=== PATIENT | female | born 1980 | race Caucasian/White ===

== ENCOUNTER 2024-07-25 10:38 | Emergency (ER) | payer OTHER, SELFPAY ==
[2024-07-25 11:07] VITALS: BP 114/81; PULSE 111; RESP 16; O2SAT 99; BMI 21.4
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
[2024-07-25 13:24] LABS: HCG Qualitative Urine. Negative (Negative)
[2024-07-25 14:31] VITALS: BP 113/78; PULSE 95; RESP 18; O2SAT 100
== END 2024-07-25 13:40 | disposition home or self-care (01) ==
PROVIDERS: Emergency Provider Family Medicine
DX: T76.21XA Adult sexual abuse, suspected, initial encounter (principal); Y07.9 Unspecified perpetrator of maltreatment and neglect
CPT/HCPCS: 81025

== ENCOUNTER 2024-12-18 11:37 | Outpatient (CLI) | payer OTHER, SELFPAY ==
[2024-12-18 12:35] LABS: Adenovirus Not Detected (NOT DETECT); Chlamydia Pneumoniae Not Detected (NOT DETECT); Coronavirus 229E,HKU1,NL63,OC4 Not Detected (NOT DETECT); Human Metapneumovirus Not Detected (NOT DETECT); Human Rhinovirus/Enterovirus Not Detected (NOT DETECT); Influenza A Not Detected (NOT DETECT); Influenza A H1 Not Detected (NOT DETECT); Influenza A H1-2009 Not Detected (NOT DETECT); Influenza A H3 Not Detected (NOT DETECT); Influenza B Not Detected (NOT DETECT); Mycoplasma Pneumoniae Not Detected (NOT DETECT); Parainfluenza Virus Type 1 Not Detected (NOT DETECT); Parainfluenza Virus Type 2 Not Detected (NOT DETECT); Parainfluenza Virus Type 3 Not Detected (NOT DETECT); Parainfluenza Virus Type 4 Not Detected (NOT DETECT); Respiratory Syncytial Virus A Not Detected (NOT DETECT); Respiratory Syncytial Virus B Not Detected (NOT DETECT)
[2024-12-18 12:38] LABS: SARS-COV-2 Detected (NOT DETECT)
== END 2024-12-18 11:38 | disposition home or self-care (01) ==
LOC: ER 11:45 → LAB 11:55
PROVIDERS: Visit Provider Family Medicine
DX: Z01.89 Encounter for other specified special examinations (principal)
CPT/HCPCS: 87486; 87581; 87633

== ENCOUNTER 2025-06-25 07:13 | Outpatient (CLI) | payer OTHER, SELFPAY ==
[2025-06-25 07:31] LABS: Hematocrit 38.8 % (36-47); Hemoglobin 12.30 g/dL (11.27-16.99); Mean Corpuscular HGB Conc 31.7 g/dL (30-55); Mean Corpuscular Hemoglobin 29.1 pg (27-33); Mean Corpuscular Volume 91.7 fl (85-98); Nucleated Red Blood Cells % 0 %; Platelet Count 329 10^3/cmm (157-399); Red Blood Count 4.23 10^6/uL (3.85-5.65); White Blood Count 5.21 10^3/uL (3.29-11.43)
[2025-06-25 08:08] LABS: Alanine Aminotransferase 9 U/L (0-33); Albumin Level 4.2 g/dL (3.5-5.2); Alkaline Phosphatase 44 U/L (35-105); Anion Gap 13.1 (5-19); Aspartate Amino Transferase 15 U/L (0-32); Blood Urea Nitrogen 7 mg/dL (6-20); Calcium 8.8 mg/dL (8.5-10.5); Carbon Dioxide 26 mmol/L (22-29); Chloride 105 mmol/L (98-107); Cholesterol 159 mg/dL (0-200); Globulin 3.2 g/dL (1.3-4.6); Glucose 88 mg/dL (65-115); HDL Cholesterol 73 mg/dL (60-100); Osmolality Calculated 287 mOsm/kg (285-295); Potassium 4.1 mmol/L (3.5-5.1); Sodium 140 mmol/L (136-145); Total Protein 7.4 g/dL (6.6-8.7); Triglycerides 69 mg/dL (0-150)
[2025-06-26 07:47] LABS: Free T4 Free Thyroxine 1.20 ng/dL (0.82-1.77); Thyroid Stimulating Hormone 1.35 uIU/mL (0.27-4.20)
[2025-06-26 16:43] LABS: Insulin ( Reference Lab Test) 5.1 uIU/mL
== END 2025-06-25 07:14 | disposition home or self-care (01) ==
PROVIDERS: PCP Family Medicine; Visit Provider Family Medicine
DX: Z13.6 Encounter for screening for cardiovascular disorders (principal); L73.2 Hidradenitis suppurativa; R79.89 Other specified abnormal findings of blood chemistry
CPT/HCPCS: 36415; 80053; 80061; 83525; 84146; 84403; 84439; 84443; 85025

== ENCOUNTER 2025-08-08 12:49 | Outpatient (CLI) | payer OTHER, SELFPAY ==
--- NOTE | 2025-08-08 13:00 | MR_ITS ---
WS: [id number] MRI BRAIN WITH AND WITHOUT CONTRAST, attention to the pituitary gland. HISTORY: elevated Prolactin COMPARISON: None available. TECHNIQUE: Multiplanar imaging performed through the brain with MultiHance 11 ml's IV. No acute infarcts are seen. Rae-white matter differentiation is well preserved. No susceptibility artifacts or prior lacunar infarcts. Ventricles and extra-axial spaces are normal. Clivus and pituitary gland are normal. Small caliber pituitary gland. There is no mass or abnormal enhancement. No abnormal signal in the sella turcica. Visualized posterior fossa and brainstem are also normal. Postcontrast images are negative for masses or vascular malformations. Dural venous sinuses are normal. Paranasal sinuses: Well aerated with no significant disease. Mastoid air cells: Normal. Calvarium and scalp: Normal. MR/MR head wo/w con [id number] IMPRESSION: 1. Normal MRI brain. 2. Normal pituitary gland. No macroadenoma or microadenoma. 3. No prior infarct or hemorrhage.
[2025-08-08] MEDS: gadobenate dimeglumine 20 mL vial 11 ML IV (13:59)
== END 2025-08-08 12:50 | disposition home or self-care (01) ==
LOC: RAD 12:54
PROVIDERS: PCP Family Medicine; Visit Provider Family Medicine
DX: R79.89 Other specified abnormal findings of blood chemistry (principal)
CPT/HCPCS: 70553